=== PATIENT | female | born 1985 | race Caucasian/White ===

== ENCOUNTER → 2018-06-02 | Outpatient (CLI) | payer OTHER ==
[~2018-06-02] MED LIST: ACET325 PO; BUPR150ER PO; CEPH500 PO; CIPR500 PO; CLIN300 PO; CLON2 PO; CYCL10 PO; DIAZ5 PO; ESCI10 PO; FLUO10 PO; HYDACE5 PO; MULVITMINE PO; OXYACE5T PO; SACC250C PO; Ultram50 MG PO
== END ==
LOC: LAB 17:37 → LAB SHORT 17:37
DX: F12.20 Cannabis dependence, uncomplicated (principal)
CPT/HCPCS: G0480

== ENCOUNTER → 2018-06-16 | Outpatient (CLI) | payer OTHER | LOC: LAB SHORT 10:11 → LAB 10:11 | DX: Z51.81 Encounter for therapeutic drug level monitoring (principal); F11.20 Opioid dependence, uncomplicated; Z79.899 Other long term (current) drug therapy | CPT/HCPCS: G0480 ==

== ENCOUNTER → 2018-06-25 | Outpatient (CLI) | payer OTHER | LOC: LAB 17:58 → LAB SHORT 17:58 | DX: Z51.81 Encounter for therapeutic drug level monitoring (principal); F11.20 Opioid dependence, uncomplicated; Z79.899 Other long term (current) drug therapy | CPT/HCPCS: G0480 ==

== ENCOUNTER 2019-08-05 08:31 | Emergency (ER) | payer OTHER | END 2019-08-05 09:22 | disposition left against medical advice (07) | LOC: ER 08:31 | DX: Z53.21 Procedure and treatment not carried out due to patient leaving prior to being seen by health care provider (principal) ==